=== PATIENT | male | born 1970 | race Caucasian/White ===

== ENCOUNTER → 2018-05-07 09:37 | Outpatient (CLI) | payer OTHER, SELFPAY ==
--- NOTE | 2018-05-07 | DI.MRI.S_ITS ---
PROCEDURE: MR LUMBAR SPINE WO CON INDICATIONS: Intervertebral disc disorders with radiculopathy, TECHNIQUE: Noncontrast sagittal T1 spin echo and T2 fast echo, sagittal STIR, axial T1 and T2 fast spin echo through the lumbar spine. In cases with scoliosis, additional coronal T2 fast spin echo may be performed. COMPARISON: None. FINDINGS: Image quality: Excellent. Alignment and Curvature: There is mild straightening of normal lumbar lordosis. No spondylolisthesis is seen. Bone Marrow: Marrow is of normal overall signal. No acute vertebral body compression fractures. Vertebral body heights are well-preserved. Spinal Cord: Conus medullaris terminates at the T12-L1 level. Visualized cord demonstrates normal signal and size. Paraspinous Soft Tissues: No paravertebral masses. T12-L1: Mild left paracentral disc bulge is seen with no significant canal stenosis or neuroforaminal narrowing. L1-L2: There is bilateral facet arthrosis. No significant canal stenosis or neuroforamina narrowing. L2-L3: There is broad-based disc bulge and bilateral facet arthrosis with mild central canal stenosis and left worse than right bilateral neural foraminal narrowing. Bulging disc likely contacting left L2 nerve root. L3-L4: Broad-based disc bulge and bilateral facet arthrosis is seen with mild to moderate central canal stenosis and [id number] left worse in right bilateral neuroforaminal narrowing. Bulging disc is contacting left L3 nerve root. L4-L5: There is bilateral facet arthrosis and broad-based disc bulge with superimposed central to left sided disc herniation causing moderate to severe central canal stenosis and left worse than right bilateral neuroforaminal narrowing. Bulging disc is seen contacting left L5 nerve root and bilateral exiting L4 nerve roots. L5-S1: Diffuse disc bulge and bilateral facet arthrosis is seen with mild central canal stenosis, no significant neural foramina narrowing. IMPRESSION: 1. Degenerative disc bulge and bilateral facet arthrosis throughout lumbar spine with moderate to severe central canal stenosis and bilateral neuroforaminal narrowing most prominent at L4-5 level as described in detail above. 2. No acute compression fracture of thoracic spondylolisthesis. No marrow edema. Dictated by: Grayson Rodríguez M.D. on 05/09/2018 at 8:23 Approved by: Grayson Rodríguez M.D. on 05/09/2018 at 8:38
== END ==
PROVIDERS: Visit Provider Chiropractor
DX: M51.16 Intervertebral disc disorders with radiculopathy, lumbar region (principal); M51.17 Intervertebral disc disorders with radiculopathy, lumbosacral region; M47.26 Other spondylosis with radiculopathy, lumbar region; M47.27 Other spondylosis with radiculopathy, lumbosacral region
CPT/HCPCS: 72148